=== PATIENT | female | born 2000 | race Caucasian/White ===

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

== ENCOUNTER → 2022-01-18 | Outpatient (CLI) | payer OTHER ==
[~2022-01-18] MED LIST changes: +LEXA1TAB2 PO; +PRENTAB53 PO
== END ==
LOC: M LAB 09:44
PROVIDERS: ATTEND Internal Medicine
DX: Z32.00 Encounter for pregnancy test, result unknown (principal)

== ENCOUNTER → 2022-01-22 | Outpatient (CLI) | payer OTHER | LOC: M WHC 09:21 | PROVIDERS: ATTEND Obstetrics & Gynecology | DX: O36.80X0 Pregnancy with inconclusive fetal viability, not applicable or unspecified (principal) ==

== ENCOUNTER → 2022-02-19 | Outpatient (CLI) | payer OTHER | LOC: M PLALAB 11:41 | PROVIDERS: ATTEND Advanced Practice Midwife | DX: Z34.01 Encounter for supervision of normal first pregnancy, first trimester (principal); Z3A.10 10 weeks gestation of pregnancy ==

== ENCOUNTER → 2022-05-05 | Outpatient (CLI) | payer OTHER | LOC: M WHC 09:58 | PROVIDERS: ATTEND Specialist | DX: Z36.9 Encounter for antenatal screening, unspecified (principal); Z3A.21 21 weeks gestation of pregnancy ==

== ENCOUNTER → 2022-06-17 | Outpatient (CLI) | payer OTHER ==
[2022-06-17 14:03] LABS: HEMATOCRIT 32.7 % (36.0-47.0); HEMOGLOBIN 10.7 g/dl (12.0-15.5); MEAN CORPUSCULAR HEMOGLOBIN 30.9 pg (27.0-33.0); MEAN CORPUSCULAR HGB CONC 32.7 g/dl (32.0-36.5); MEAN CORPUSCULAR VOLUME 94.5 fl (80.0-96.0); PLATELET COUNT, AUTOMATED 258 10^3/uL (150-450); RED BLOOD COUNT 3.46 10^6/uL (4.00-5.40); WHITE BLOOD COUNT 11.4 10^3/uL (4.0-10.0)
[2022-06-17 16:47] LABS: GC DNA AMPLIFICATION NEGATIVE (NEGATIVE)
== END ==
LOC: M PLALAB 09:40
PROVIDERS: ATTEND Advanced Practice Midwife
DX: Z34.02 Encounter for supervision of normal first pregnancy, second trimester (principal)

== ENCOUNTER → 2022-06-17 | Outpatient (CLI) | payer OTHER ==
[2022-06-17 14:06] LABS: HEMATOCRIT 33.6 % (36.0-47.0); HEMOGLOBIN 10.9 g/dl (12.0-15.5); MEAN CORPUSCULAR HEMOGLOBIN 30.6 pg (27.0-33.0); MEAN CORPUSCULAR HGB CONC 32.4 g/dl (32.0-36.5); MEAN CORPUSCULAR VOLUME 94.4 fl (80.0-96.0); PLATELET COUNT, AUTOMATED 255 10^3/uL (150-450); RED BLOOD COUNT 3.56 10^6/uL (4.00-5.40); WHITE BLOOD COUNT 11.6 10^3/uL (4.0-10.0)
[2022-06-17 15:38] LABS: HEPATITIS C VIRUS ABY INDEX < 0.0 INDEX (<0.8); HIV 1&2 SCREEN CENTAUR NEGATIVE (NEGATIVE)
[2022-06-17 22:50] LABS: GC DNA AMPLIFICATION NEGATIVE (NEGATIVE)
== END ==
LOC: M PLALAB 09:44
PROVIDERS: ATTEND Specialist
DX: Z34.02 Encounter for supervision of normal first pregnancy, second trimester (principal)

== ENCOUNTER → 2022-07-21 | Outpatient (REF) | payer OTHER | LOC: M SFHCWAGY 13:33 | PROVIDERS: ATTEND Obstetrics & Gynecology | DX: Z34.03 Encounter for supervision of normal first pregnancy, third trimester (principal) ==

== ENCOUNTER → 2022-09-02 | Outpatient (REF) | payer OTHER | LOC: M PLALAB 13:53 | PROVIDERS: ATTEND Obstetrics & Gynecology | DX: Z34.93 Encounter for supervision of normal pregnancy, unspecified, third trimester (principal) ==

== ENCOUNTER → 2024-06-25 | Outpatient (CLI) | payer OTHER ==
[~2024-06-25] MED LIST changes: +ACET-907 PO; +PRENTAB9 PO; +TUMS500C PO
[2024-06-25 13:00] LABS: HCG, SERUM QUALITATIVE POSITIVE (NEGATIVE)
[2024-06-25 14:01] LABS: HCG, SERUM QUANTITATIVE 17131.8 MIU/ML (<4.2)
== END ==
LOC: M PLALAB 10:30
PROVIDERS: ATTEND Nurse Practitioner Family
DX: N91.1 Secondary amenorrhea (principal)

== ENCOUNTER → 2024-07-26 | Outpatient (CLI) | payer OTHER ==
[2024-07-26 15:05] LABS: HEMATOCRIT 34.8 % (36.0-47.0); HEMOGLOBIN 11.1 g/dl (12.0-15.5); MEAN CORPUSCULAR HGB CONC 31.9 g/dl (32.0-36.5); MEAN CORPUSCULAR VOLUME 90.9 fl (80.0-96.0); PLATELET COUNT, AUTOMATED 272 10^3/uL (150-450); RED BLOOD COUNT 3.83 10^6/uL (4.00-5.40); WHITE BLOOD COUNT 10.6 10^3/uL (4.0-10.0)
[2024-07-26 18:56] LABS: HIV 1&2 SCREEN NEGATIVE (NEGATIVE)
[2024-07-26 19:01] LABS: HEPATITIS C VIRUS ABY INDEX 0.03 INDEX (<0.8)
== END ==
LOC: M PLALAB 11:36
PROVIDERS: ATTEND Obstetrics & Gynecology
DX: O41.03X0 Oligohydramnios, third trimester, not applicable or unspecified (principal)

== ENCOUNTER → 2024-07-26 | Outpatient (CLI) | payer OTHER | LOC: M WHC 09:02 | PROVIDERS: ATTEND Nurse Practitioner Family | DX: Z32.01 Encounter for pregnancy test, result positive (principal); Z3A.35 35 weeks gestation of pregnancy ==

== ENCOUNTER → 2024-08-01 | Outpatient (REF) | payer OTHER, SELFPAY ==
[2024-08-01 17:15] LABS: GC DNA AMPLIFICATION NEGATIVE (NEGATIVE)
== END ==
LOC: M SFHCWAGY 14:59
PROVIDERS: ATTEND Obstetrics & Gynecology
DX: O41.03X0 Oligohydramnios, third trimester, not applicable or unspecified (principal); Z3A.36 36 weeks gestation of pregnancy

== ENCOUNTER → 2025-06-24 | Outpatient (CLI) | payer MEDICAID, OTHER ==
[~2025-06-24] MED LIST changes: -IBUP-1022 PO; +IBUP600T42 PO
[2025-06-24 15:49] LABS: PLATELET COUNT, AUTOMATED 250 10^3/uL (150-450)
[2025-06-24 16:49] LABS: HIV 1&2 SCREEN NEGATIVE (NEGATIVE)
[2025-06-24 16:55] LABS: Trichomonas vaginalis (AMP) NOT DETECTED (NEGATIVE)
[2025-06-24 16:56] LABS: HEPATITIS C VIRUS ABY INDEX 0.11 INDEX (<0.8)
[2025-06-24 17:55] LABS: GC DNA AMPLIFICATION NEGATIVE (NEGATIVE)
== END ==
LOC: M PLALAB 12:56
PROVIDERS: ATTEND Nurse Practitioner Family
DX: Z34.80 Encounter for supervision of other normal pregnancy, unspecified trimester (principal)

== ENCOUNTER → 2025-08-08 | Outpatient (CLI) | payer OTHER | LOC: M RAD 13:57 | PROVIDERS: ATTEND Nurse Practitioner Family | DX: Z34.92 Encounter for supervision of normal pregnancy, unspecified, second trimester (principal); Z3A.26 26 weeks gestation of pregnancy ==